=== PATIENT | female | born 2000 | race Caucasian/White ===

== ENCOUNTER 2020-11-25 21:07 | Inpatient (IN) | payer OTHER ==
[2020-11-25] MEDS ORDERED: RINGERS SOLUTION,LACTATED 1,000 ML IV PRN (21:41)
[2020-11-25] MEDS ORDERED: RINGERS SOLUTION,LACTATED 1,000 ML IV ONE (21:41)
[2020-11-25] MEDS ORDERED: MISOPROSTOL 0.2 MG TABLET ONE (21:43)
[2020-11-25] MEDS ORDERED: OXYTOCIN 10 UNIT/ML VIAL ONE (21:43)
[2020-11-25] MEDS ORDERED: LIDOCAINE 1% INJ-PF (10 MG/ML) 30 ML SDV ONE (21:44)
[2020-11-25] MEDS ORDERED: PENICILLIN G-K 5 MILLION UNIT VIAL ONE (21:44)
[2020-11-25] MEDS ORDERED: OXYTOCIN/0.9 % SODIUM CHLORIDE 30 UNIT/500 ML RTUINJ ONE (21:44)
[2020-11-25] MEDS ORDERED: PENICILLIN G POTASSIUM 5,000,000 UNIT in DEXTROSE 5%-WATER 100 ML IV ONE (21:45)
[2020-11-25 22:26] LABS: ABSOLUTE LYMPHOCYTES (AUTO) 2.6 10^3/uL (0.5-4.7); ABSOLUTE MONOCYTES (AUTO) 0.9 10^3/uL (0.1-1.4); ABSOLUTE NEUT (AUTO) 8.1 10^3/uL (1.7-8.2); BASOPHILS % (AUTO) 0.3 % (0-2); EOSINOPHILS % (AUTO) 0.3 % (0-6); HEMATOCRIT 34.7 % (36.0-47.0); HEMOGLOBIN 12.2 g/dL (12.0-15.5); LYMPHOCYTES % (AUTO) 22.4 % (13-45); MEAN CORPUSCULAR HEMOGLOBIN 31.5 pg (27.0-33.4); MEAN CORPUSCULAR HGB CONC 35.2 g/dL (32.0-36.0); MEAN CORPUSCULAR VOLUME 90 fl (80-97); MONOCYTES % (AUTO) 7.7 % (3-13); PLATELET COUNT 198 10^3/uL (150-450); RED BLOOD COUNT 3.87 10^6/uL (3.72-5.28); RED CELL DISTRIBUTION WIDTH 13.4 % (11.5-14.0); SEGMENTED NEUTROPHILS % (AUTO) 69.3 % (42-78); TOTAL CELLS COUNTED % (AUTO) 100 %; WHITE BLOOD COUNT 11.6 10^3/uL (4.0-10.5)
[2020-11-25 22:36] LABS: APPEARANCE,URINE SLIGHTLY-CLOUDY; BILIRUBIN,URINE NEGATIVE (NEGATIVE); COLOR,URINE YELLOW; GLUCOSE, URINE NEGATIVE (NEGATIVE); KETONES,URINE NEGATIVE (NEGATIVE); LEUKOCYTE ESTERASE,URINE LARGE (NEGATIVE); NITRITE,URINE NEGATIVE (NEGATIVE); PROTEIN,URINE NEGATIVE (NEGATIVE); URINE SPECIFIC GRAVITY 1.008; UROBILINOGEN,URINE NEGATIVE mg/dL (<2.0)
[2020-11-25 22:41] LABS: URINE AMPHETAMINES SCREEN NEGATIVE; URINE BARBITURATES SCREEN NEGATIVE; URINE BENZODIAZEPINES SCREEN NEGATIVE; URINE COCAINE SCREEN NEGATIVE; URINE MARIJUANA (THC) SCREEN NEGATIVE; URINE METHADONE SCREEN NEGATIVE; URINE PHENCYCLIDINE SCREEN NEGATIVE
--- NOTE | 2020-11-25 23:03 | Admission Physical ---
Datetime Report Generated by CPN: 11/25/2020 23:02 CURRENT ADMISSION Hx Assessment: The History has been Reviewed and is Current Chief Complaint: Uterine Contractions Chief Complaint Other: G1 at 36. o wks EGA in active labor Admit Impression : , Intrauterine ; Active Labor Admit Plan: Admit to Unit; Initiate Labor Protocol Admit Plan- Other: obs status for now, give Betamethasone, tx for unknown GBS status. Will admit if patient makes further cervical change ALLERGIES Medication Allergies: No Medication Allergies: No Known Allergies (11/25/2020) Latex: No Latex Allergies Food Allergies: denies Environmental Allergies: denies OBSTETRICAL HISTORY EDC: 12/22/2020 00:00 : 1 Para: 0 Term: 0 : 0 SAB: 0 IAB: 0 Ectopic: 0 Livin Cesareans: 0 VBACs: 0 Multiple Births: 0 Gestational Diabetes: No Rh Sensitization: No Incompetent Cervix: No DIANE: No Infertility: No ART Treatment: No Uterine Anomaly: No IUGR: No Hx Previous C/S: No Macrosomia: No Hx Loss/Stillborn: No PIH: No Hx : No Placenta Previa/Abruption: No Depression/PP Depression: No PTL/PROM: Yes Post Hemorrhage: No Current Procedures: Ultrasound Obstetrical History Comments: g1-current , PTL at 35+5 weeks gestation SEE RECORDS Alcohol: No Marijuana : No Cocaine: No Other Illicit Drugs: No Cigarettes: Former Smoker. 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 Surgery: No Heart Disease: No Hosp/Surgery: No Autoimmune Disorder: No Anesthetic Complications: No Kidney Disease: No Abnormal Pap Smear: No Neuro/Epilepsy: No Psychiatric Disorders: No Other Medical Diseases: No Hepatitis/Liver Disease: No Significant Family History: No Varicosities/Phlebitis: No Trauma/Violence : No Thyroid Dysfunction: No INFECTIOUS HISTORY Gonorrhea: No Genital Herpes: No Chlamydia: No Tuberculosis: No Syphilis: No Hepatitis: No HIV/AIDS Exposure: No Rash or Viral Illness: No HPV: No PHYSICAL EXAM General: Normal HEENT: Normal Neurologic: Normal Thyroid: Normal Heart: Normal Lungs: Normal Breast: Normal Back: Normal Abdomen: Normal Genitourinary Exam: Normal Extremities: Normal DTRs: Normal Pelvic Type: Adequate Vital Signs: Reviewed; Within Normal Limits VAGINAL EXAM Dilatation: 10 Effacement: 100 Station: 0 Contraction Comments: Regular MEMBRANES Membranes: Intact FETUS A EGA: 36.1 Monitoring: External US FHR- Baseline: 125 Variability: Moderate 6-25bpm Accelerations: 15X15 Decelerations: None FHR Category: Category I Presentation: Vertex Admit Comment: G1 at 36. o wks EGA in active labor -Admit to LDR -NPO and IVFs -CEFM and toco -cervix: C/C/+1 -GBS unknown, swab obtained for GBS. PCN started IV -Anticipate PLANS FOR LABOR AND DELIVERY Labor and Delivery: Plan Pain Management: None Feeding Preference: Breast Benefit of Breast Feed Discussed: Yes Circumcision: N/A INFORMED CONSENT Informed Consent Obtained: Vaginal Delivery; Section Delivery; Vacuum/Forceps Assist; Risks, Benefits and Alternatives Discussed Assignment: Selena Loyola MD Signature: with User ID: Evangelista : with User ID: Evangelista
[2020-11-25] MEDS ORDERED: FENTANYL/BUPIVACAINE/NS/PF 300 MCG/150 ML RTUINJ EPI ONE (23:09)
[2020-11-25] MEDS ORDERED: ROPIVACAINE HCL 0.2% INJ/PF (2 MG/ML) 20 ML SDV ONE (23:09)
[2020-11-25] MEDS ORDERED: EPHEDRINE SULFATE INJ 50 MG/1 ML AMPULE ONE (23:09)
[2020-11-26] MEDS ORDERED: PENICILLIN G POTASSIUM 2,500,000 UNIT in DEXTROSE 5%-WATER 50 ML IV SCH (01:45)
[2020-11-26] MEDS ORDERED: ACETAMINOPHEN WITH CODEINE #3 TABLET PO PRN ×2 (05:16)
[2020-11-26] MEDS ORDERED: ACETAMINOPHEN 650 MG SUPP.RECT PR PRN (05:16)
[2020-11-26] MEDS ORDERED: VARICELLA VACC/PF (1350 UNIT/0.5 ML) 0.5 ML VIAL SUBCUT PRN (05:16)
[2020-11-26] MEDS ORDERED: ACETAMINOPHEN 325 MG TABLET PO PRN (05:16)
[2020-11-26] MEDS ORDERED: DIPH/PERTUSS(ACELL)/TETANUS VAC/PF 0.5 ML SYR (>=10YO) IM PRN (05:16)
[2020-11-26] MEDS ORDERED: OXYTOCIN/0.9 % SODIUM CHLORIDE 30 UNIT/500 ML RTUINJ IV PRN (05:16)
[2020-11-26] MEDS ORDERED: DIBUCAINE 1% OINTMENT 28 GM TP PRN (05:16)
[2020-11-26] MEDS ORDERED: MAGNESIUM HYDROXIDE SUSP 30 ML UDCUP PO PRN (05:16)
[2020-11-26] MEDS ORDERED: ZOLPIDEM TARTRATE 5 MG TABLET PO PRN (05:16)
[2020-11-26] MEDS ORDERED: BENZOCAINE/MENTHOL AEROSOL SPRAY 56 ML TOP PRN (05:16)
[2020-11-26] MEDS ORDERED: PSEUDOEPHEDRINE HCL 30 MG TABLET PO PRN (05:16)
[2020-11-26] MEDS ORDERED: DIPHENHYDRAMINE HCL 25 MG CAPSULE PO PRN (05:16)
[2020-11-26] MEDS ORDERED: FAMOTIDINE 20 MG TABLET PO PRN (05:16)
[2020-11-26] MEDS ORDERED: MAG HYDROX/AL HYDROX/SIMETH SUSP 30 ML UDCUP PO PRN (05:16)
[2020-11-26] MEDS ORDERED: GLYCERIN/WITCH HAZEL LEAF 1 EACH MED..WIPE TP PRN (05:16)
[2020-11-26] MEDS ORDERED: MEASLES,MUMPS&RUBELLA VACC/PF 0.5 ML VIAL SUBCUT PRN (05:16)
[2020-11-26] MEDS ORDERED: IBUPROFEN 800 MG TABLET ONE (06:03)
[2020-11-26] MEDS: IBUPROFEN 800 MG TABLET PO SCH ×3 (06:05→21:26)
--- NOTE | 2020-11-26 07:28 | Warning Signs in Babies ---
VOD Warning Signs Datetime Report Generated by [facility]: 11/26/2020 07:28 VOD#[id number] -Warning Signs in Babies: Viewed with Parent(s)/Family (11/26/2020 07:28:Vahid Parikh RN)
[2020-11-26] MEDS: DOCUSATE SODIUM 100 MG CAPSULE PO SCH ×2 (10:19→17:56)
[2020-11-26] MEDS: SENNOSIDES/DOCUSATE 8.6-50 MG 1 EACH TABLET PO SCH (10:19)
[2020-11-26] MEDS: FERROUS SULFATE 325 MG TABLET PO SCH ×2 (10:19→17:56)
[2020-11-26] MEDS: PRENATAL VITAMIN W DHA CAPSULE PO SCH (10:20)
[2020-11-27] MEDS: IBUPROFEN 800 MG TABLET PO SCH ×3 (05:48→21:48)
[2020-11-27 06:36] LABS: HEMATOCRIT 30.6 % (36.0-47.0); HEMOGLOBIN 10.6 g/dL (12.0-15.5); MEAN CORPUSCULAR HEMOGLOBIN 31.3 pg (27.0-33.4); MEAN CORPUSCULAR HGB CONC 34.7 g/dL (32.0-36.0); MEAN CORPUSCULAR VOLUME 90 fl (80-97); PLATELET COUNT 184 10^3/uL (150-450); RED CELL DISTRIBUTION WIDTH 13.2 % (11.5-14.0); WHITE BLOOD COUNT 12.6 10^3/uL (4.0-10.5)
[2020-11-27] MEDS ORDERED: INFLUENZA QUAD (6MOS+) 2020-21 VAC 0.5 ML SYR IM ONE (08:00)
[2020-11-27] MEDS: SENNOSIDES/DOCUSATE 8.6-50 MG 1 EACH TABLET PO SCH (09:57)
[2020-11-27] MEDS: FERROUS SULFATE 325 MG TABLET PO SCH ×2 (09:57→17:51)
[2020-11-27] MEDS: DOCUSATE SODIUM 100 MG CAPSULE PO SCH ×2 (09:57→17:51)
[2020-11-27] MEDS: PRENATAL VITAMIN W DHA CAPSULE PO SCH (09:57)
--- NOTE | 2020-11-27 10:56 | PDOC PROGRESS REPORT ---
Subjective-OB Progress Note for:: 11/27/20 Subjective: doing well, pumping breasts, hsb holding baby, would like to go home, both grandmothers at her house, so she has good support, , voiding, scant bleeding Physical Exam (OB) Vital Signs: Temp Pulse Resp BP Pulse Ox 97.8 F 71 18 116/70 100 11/27/20 08:15 11/27/20 08:15 11/27/20 08:15 11/27/20 08:15 11/27/20 08:15 Intake & Output 11/26/20 11/27/20 11/28/20 06:59 06:59 06:59 Intake Total 1600 Output Total 400 Balance 1200 Weight 85.7 kg - PIH/Pre-Eclampsia Headache: Absent Epigastric Pain: No Visual Changes: No - Maternal Morbidity 59. Maternal Morbidity (serious complications experinced by the mother associated with labor and delivery: None of the above - Lochia Lochia Amount: Scant < 10 ml Lochia Color: Rubra/Red - Abdomen Description: Soft Hernia Present: No Fundal Description: Firm, Midline Fundal Height: u/u - u/2 Objective-Diagnostic Laboratory: 11/27/20 06:15 11/27/20 11/27/20 06:15 06:15 WBC 12.6 H RBC 3.40 L Hgb 10.6 L Hct 30.6 L MCV 90 MCH 31.3 MCHC 34.7 RDW 13.2 Plt Count 184 Blood Type O NEGATIVE 11/25/20 22:00 Vaginal/Anorectal Group B Streptococcus Culture - Final NO GROUP B STREPTOCOCCUS RECOVERED Assessment and Plan(PN) - Assessment and Plan (1) delivery, delivered Is this a current diagnosis for this admission?: Yes (2) Polyhydramnios affecting in third trimester Is this a current diagnosis for this admission?: Yes - Time Spent with Patient Time with patient: Less than 15 minutes Medications reviewed and adjusted accordingly: Yes - Disposition Anticipated Discharge Disposition: Home, Self Care Anticipated Discharge Timeframe: within 24 hours
[2020-11-28] MEDS: IBUPROFEN 800 MG TABLET PO SCH (05:10)
[2020-11-28 07:46] VITALS: BP 126/71
--- NOTE | 2020-11-28 09:41 | PDOC DISCHARGE SUMMARY ---
Impression - Admit/DC Date/PCP Admission Date/Primary Care Provider: 11/25/20 21:43 JANELL GELLER MD Discharge Date: 11/28/20 - PP Day #2, pt doing well, baby has to stay under the [place]-lights, so pt will Nest overnight. O negative, Rubella Immune, breast and bottlefeeding. PNC at [facility]. - Discharge Diagnosis (1) 35 weeks gestation of Is this a current diagnosis for this admission?: Yes (2) delivery, delivered Is this a current diagnosis for this admission?: Yes (3) Polyhydramnios affecting in third trimester Is this a current diagnosis for this admission?: Yes (4) Rh negative status during Is this a current diagnosis for this admission?: Yes - Additional Information Resuscitation Status: Full Code Discharge Diet: Regular Discharge Activity: Activity As Tolerated, No Lifting Over 10 Pounds, No tub bath Referrals: [facility] [Provider Group] (Please call [facility] for a 4 week f/u appointment.) Prescriptions: Ibuprofen [Motrin 800 mg Tablet] 800 mg PO Q8 #60 tablet Home Medications: Prenat 115/Iron Fum/Folic/Dss [ 19 Tablet] 1 tab PO DAILY 11/22/20 Ibuprofen [Motrin 800 mg Tablet] 800 mg PO Q8 #60 tablet 11/28/20 HPI Reason(s) for Admission: Onset of Labor, Labor, Obstetric Complications Procedures: Ultrasound, Management of Obstetric Complications Intrapartum Procedure(s): Spontaneous Vaginal Delivery Complication(s): Laceration-Perineal Laceration-Degree: 1st Hospital Course 59. Maternal Morbidity (serious complications experinced by the mother associated with labor and delivery: None of the above Results Laboratory Results: WBC 12.6 10^3/uL (4.0-10.5) H 11/27/20 06:15 RBC 3.40 10^6/uL (3.72-5.28) L 11/27/20 06:15 Hgb 10.6 g/dL (12.0-15.5) L 11/27/20 06:15 Hct 30.6 % (36.0-47.0) L 11/27/20 06:15 MCV 90 fl (80-97) 11/27/20 06:15 MCH 31.3 pg (27.0-33.4) 11/27/20 06:15 MCHC 34.7 g/dL (32.0-36.0) 11/27/20 06:15 RDW 13.2 % (11.5-14.0) 11/27/20 06:15 Plt Count 184 10^3/uL (150-450) 11/27/20 06:15 Lymph % (Auto) 22.4 % (13-45) 11/25/20 22:11 Williamson % (Auto) 7.7 % (3-13) 11/25/20 22:11 Eos % (Auto) 0.3 % (0-6) 11/25/20 22:11 Baso % (Auto) 0.3 % (0-2) 11/25/20 22:11 Absolute Neuts (auto) 8.1 10^3/uL (1.7-8.2) 11/25/20 22:11 Absolute Lymphs (auto) 2.6 10^3/uL (0.5-4.7) 11/25/20 22:11 Absolute Monos (auto) 0.9 10^3/uL (0.1-1.4) 11/25/20 22:11 Absolute Eos (auto) 0.0 10^3/uL (0.0-0.6) 11/25/20 22:11 Absolute Basos (auto) 0.0 10^3/uL (0.0-0.2) 11/25/20 22:11 Seg Neutrophils % 69.3 % (42-78) 11/25/20 22:11 Urine Color YELLOW 11/25/20 21:19 Urine Appearance SLIGHTLY-CLOUDY 11/25/20 21:19 Urine pH 7.0 (5.0-9.0) 11/25/20 21:19 Ur Specific Mcdougal 1.008 11/25/20 21:19 Urine Protein NEGATIVE mg/dL (NEGATIVE) 11/25/20 21:19 Urine Glucose (UA) NEGATIVE mg/dL (NEGATIVE) 11/25/20 21:19 Urine Ketones NEGATIVE mg/dL (NEGATIVE) 11/25/20 21:19 Urine Blood MODERATE (NEGATIVE) H 11/25/20 21:19 Urine Nitrite NEGATIVE (NEGATIVE) 11/25/20 21:19 Urine Bilirubin NEGATIVE (NEGATIVE) 11/25/20 21:19 Urine Urobilinogen NEGATIVE mg/dL (<2.0) 11/25/20 21:19 Ur Leukocyte Esterase LARGE (NEGATIVE) H 11/25/20 21:19 Urine WBC (Auto) 59 /HPF 11/25/20 21:19 Urine RBC (Auto) 10 /HPF 11/25/20 21:19 Urine Bacteria (Auto) TRACE /HPF 11/25/20 21:19 Urine WBC Clumps FEW /HPF 11/25/20 21:19 Squamous Epi Cells Auto 11 /HPF 11/25/20 21:19 Urine Ascorbic Acid NEGATIVE (NEGATIVE) 11/25/20 21:19 Urine Opiates Screen NEGATIVE 11/25/20 21:19 Urine Methadone Screen NEGATIVE 11/25/20 21:19 Ur Barbiturates Screen NEGATIVE 11/25/20 21:19 Ur Phencyclidine Scrn NEGATIVE 11/25/20 21:19 Ur Amphetamines Screen NEGATIVE 11/25/20 21:19 U Benzodiazepines Scrn NEGATIVE 11/25/20 21:19 Urine Cocaine Screen NEGATIVE 11/25/20 21:19 U Marijuana (THC) Screen NEGATIVE 11/25/20 21:19 RPR NONREACTIVE (NONREACTIVE) 11/25/20 22:11 Blood Type O NEGATIVE 11/27/20 06:15 Antibody Screen POSITIVE 11/25/20 22:11 Antibody Identification RHOGAM INDUCED ANTI-D 11/25/20 22:11 Screen NEGATIVE 11/27/20 06:15 Plan Plan of Treatment: Discharge patient, but plans to Nest overnight. f/up with Ob care provider in 4-6 wks for PP check Time Spent: Less than 30 Minutes
[2020-11-28] MEDS: DOCUSATE SODIUM 100 MG CAPSULE PO SCH (09:50)
[2020-11-28] MEDS: SENNOSIDES/DOCUSATE 8.6-50 MG 1 EACH TABLET PO SCH (09:50)
[2020-11-28] MEDS: FERROUS SULFATE 325 MG TABLET PO SCH (09:50)
[2020-11-28] MEDS: PRENATAL VITAMIN W DHA CAPSULE PO SCH (10:24)
--- NOTE | 2020-11-29 12:12 | Delivery Summary ---
Del Sum A-C Datetime Report Generated by CPN: 11/29/2020 12:12 DELIVERY PERSONNEL DELIVERY PERSONNEL: [id number] Delivery Doctor:: Tamika Thompson MD Labor and Delivery Nurse:: Aleena Oden RNlicensed optical dispenser Nurse:: Marilynn Guy RN Nursery Nurse:: Genevieve Betancourt RN Nursery Nurse:: Rhianna Vaz RN Wood Grinder Operator/VENEER PRESS OPERATOR: Nikky Del Valle Additional Personnel: : Daisy Urena RN MATERNAL INFORMATION Delivery Anesthesia: Epidural Medications After Delivery: Pitocin 30 Units in 500ml NS/D5W Delivery QBL: 150 Maternal Complications: None Provider Comments: Called to patients room as she was complete and +3 station. On arrival the head was delivered and RN in room was supporting the head. The shoulders and rest of the body followed as patient pushed. was placed on patients abdomen and cord clamped, cut, then infant handed off to nursery staff awaiting to assist with suctioning as she had meconium fluid. was crying on hand off. Placenta spontaneously delivered intact. Fundus firm and 2 below. Repair of second degree laceration as above. LABOR SUMMARY EDC: 12/22/2020 00:00 No. Babies in Womb: 1 Attempted: No Labor Anesthesia: Epidural LABOR INFORMATION Reason for Induction: Not Applicable Onset of Labor: 11/25/2020 20:00 Complete Dilatation: 11/25/2020 21:37 Oxytocin: N/A Group B Beta Strep: 1 NO GROUP B STREPTOCOCCUS RECOVERED Group B Beta Strep: unknown Group B Beta Strep: Unknown Antibiotics # of Doses: 2 Antibiotics Time of Last Dose: 11/26/2020 01:26 Name of Antibiotic Given: PCN Steroids Given: Full Course Reason Steroids Not Administered: Not Applicable MEMBRANES Membranes Rupture Method: Artificial Rupture of Membranes: 11/25/2020 22:45 Length of Rupture (hr): 6.02 Amniotic Fluid Color: Moderate Meconium Amniotic Fluid Amount: Moderate Amniotic Fluid Odor: Normal STAGES OF LABOR Stage 1 hr: 1 Stage 1 min: 37 Stage 2 hr: 7 Stage 2 min: 9 Stage 3 hr: 0 Stage 3 min: 8 Total Time in Labor hr: 8 Total Time in Labor min: 54 VAGINAL DELIVERY Episiotomy: None Laceration #1: Perineal Laceration Extension #1: Second Degree Other Laceration: right labia laceration Laceration Repair: Yes Laceration Repair Note: Repaired with 2-0 chromic in a layered fashion Sponge Count Correct: Yes Sharps Count Correct: Yes CSECTION DELIVERY Primary Indication: N/A Secondary Indication: N/A CSection Incidence: N/A Labor: N/A Elective: N/A CSection Incision: N/A BABY A INFORMATION Infant Delivery Date/Time: 11/26/2020 04:46 Method of Delivery: Vaginal Method of Delivery: Vaginal Nurse Controlled Delivery: No Born in Route : No : N/A Forceps: N/A Vacuum Extraction: N/A Shoulder Dystocia : No PRESENTATION/POSITION BABY A Presentation: Cephalic Presentation: Cephalic Cephalic Presentation: Vertex Vertex Position: Left Occipital Anterior Breech Presentation: N/A PLACENTA INFORMATION BABY A Placenta Delivery Time : 11/26/2020 04:54 Placenta Method of Delivery: Spontaneous Placenta Method of Delivery: Spontaneous Placenta Status: Delivered SCORES BABY A Heart Rate 1 min: >100 bpm Resp Effort 1 min: Good Cry Reflex Irritability 1 min: Cough or Sneeze or Pulls Away Muscle Tone 1 min: Some Flexion of Extremities Color 1 min: Blue/Pale Resuscitation Effort 1 min: Tactile Stimulation SCORE 1 MIN: 7 Heart Rate 5 min: >100 bpm Resp Effort 5 min: Good Cry Reflex Irritability 5 min: Cough or Sneeze or Pulls Away Muscle Tone 5 min: Active Motion Color 5 min: Body [place], Extremities Blue SCORE 5 MIN: 9 INFORMATION BABY A Gestational Age at Delivery: 36.2 Gestational Status: Late - 34- 36.6 Weeks Infant Outcome : Liveborn Condition : Stable Sex: Female Infant Sex: Female IDENTIFICATION BABY A Verification Date/Time: 11/26/2020 04:52 ID Band Number: [id number] Mother's Name Verified: Yes Infant RN Verifying : K. Brooks, RN Additional Verifying Personnel: T. Gentilin, RN WEIGHT/LENGTH BABY A Birthweight (gm): 2805 Infant Weight (lb): 6 Infant Weight (oz): 3 Length (in): 18.50 Infant Length (cm): 46.99 CORD INFORMATION BABY A No. Cord Vessels: 3 Nuchal Cord : N/A Cord Blood Taken: Yes-For Eval (Mom's Blood Type - or O+) Infant Suction: None ASSESSMENT BABY A Complications: Multiple Variable Decels; Meconium Physical Findings at Delivery: Caput Succedaneum; Molding of the Head Physical Findings- Other: see initial nursery assessment Infant Respirations: Appears Normal Skin to Skin: Yes Concrete Inspector/ALS Called : No Infant Care By: Toyin Betancourt RN Transferred To: Nursery BABY B INFORMATION : N/A SIGNATURES Signature: with User ID: [email or web address] : with User ID: [email or web address]
== END 2020-11-28 12:00 | disposition home or self-care (01) | DRG 807 ==
LOC: LC 21:07 → LR 21:43 → 2S 11-26 08:46
PROVIDERS: ADMIT Obstetrics & Gynecology; ATTEND Obstetrics & Gynecology
PROC: 10E0XZZ Delivery of Products of Conception, External Approach (ICD-10-PCS; principal; 2020-11-25)
PROC: 0KQM0ZZ Repair Perineum Muscle, Open Approach (ICD-10-PCS; 2020-11-25)
PROC: 3E0234Z Introduction of Serum, Toxoid and Vaccine into Muscle, Percutaneous Approach (ICD-10-PCS; 2020-11-27)
PROC: 3E02340 Introduction of Influenza Vaccine into Muscle, Percutaneous Approach (ICD-10-PCS; 2020-11-28)
DX: O60.14X0 Preterm labor third trimester with preterm delivery third trimester, not applicable or unspecified (principal); Z37.0 Single live birth; O77.0 Labor and delivery complicated by meconium in amniotic fluid; O40.3XX0 Polyhydramnios, third trimester, not applicable or unspecified; O70.1 Second degree perineal laceration during delivery; O99.824 Streptococcus B carrier state complicating childbirth; O26.893 Other specified pregnancy related conditions, third trimester; O76 Abnormality in fetal heart rate and rhythm complicating labor and delivery; Z67.41 Type O blood, Rh negative; Z87.891 Personal history of nicotine dependence; Z3A.35 35 weeks gestation of pregnancy; Z23 Encounter for immunization
CPT/HCPCS: 1967; 36415; 80307; 81001; 85025; 85027; 85461; 86592; 86850; 86870; 86900; 86901; 87081; 90471; 90686; 94760; G0008; J2540; J2590; J2790; J2795; J3010; J3490; J7060